=== PATIENT | female | born 1945 ===

== ENCOUNTER → 2021-03-29 11:25 | Outpatient (ROUT) | payer OTHER, SELFPAY ==
[2021-03-29 11:40] LABS: Basophils Absolute Auto 100 /uL (0-100); Basophils Percent Auto 1.3 % (0-2); Eosinophils Absolute Auto 600 /uL (0-450); Eosinophils Percent Auto 6.5 % (2-4); Lymphocytes Absolute Auto 2000 /uL (1100-4500); Lymphocytes Percent Auto 23.1 % (25-40); Mean Corpuscular HGB Conc 31.8 % (30-36); Mean Corpuscular Hemoglobin 27.8 PG (26-34); Mean Corpuscular Volume 87.4 fL (80-100); Monocytes Absolute Auto 800 /uL (0-900); Monocytes Percent Auto 9.6 % (3-14); Neutrophils Absolute Auto 5100 /uL (1500-7000); Neutrophils Percent Auto 59.5 % (50-75); Red Blood Cell Count 2.86 X10^6/uL (4.0-5.2); Red Cell Distribution Width 17.2 % (11.6-14.8); White Blood Cell Count 8.6 X10^3/uL (4.5-11.0)
[2021-03-29 11:51] LABS: BUN Creatinine Ratio 46.8 (6-22); Blood Urea Nitrogen 29 mg/dL (7-17); C-Reactive Protein Quant < 0.5 mg/dL (<1.0); Calcium 9.6 mg/dL (8.4-10.2); Carbon Dioxide 27 mmol/L (22-32); Chloride 107 mmol/L (98-107); Estimated Glomerular Filt Rate > 60.0 mL/min (>60); Glucose 121 mg/dL (80-110); HEMOLYSIS < 15 (0-50); Potassium 3.8 mmol/L (3.4-5.1); Sodium 143 mmol/L (137-145)
[2021-03-29 11:58] LABS: Add Manual Diff / Slide Review SLIDE REVIEW
[2021-03-29 12:17] LABS: Platelet Count 302 X10^3/uL (150-400)
[2021-03-29 12:18] LABS: Platelet Clumps 1
[2021-03-29 12:36] LABS: Erythrocyte Sedimentation Rate 63 MM/HR (0-20)
== END ==
PROVIDERS: Visit Provider Internal Medicine Infectious Disease
DX: M86.9 Osteomyelitis, unspecified (principal)
CPT/HCPCS: 80048; 80202; 85025; 85651; 86140